=== PATIENT | female | born 1965 | race Caucasian/White ===

== ENCOUNTER 2018-10-10 13:22 | Observation (INO) | payer OTHER, SELFPAY ==
--- NOTE | 2018-10-10 13:49 | RAD ---
EXAM: Single view of the chest HISTORY: Intermittent chest pain and dizziness COMPARISON: None FINDINGS: Single view of the chest shows a normal sized cardiomediastinal silhouette. There is no blane dence of consolidation, mass, or pleural effusion. The bones are unremarkable. IMPRESSION: No evidence of acute cardiopulmonary disease
[2018-10-10 13:59] LABS: #Basophils 0.1 thou/uL (0.0-0.2); #Eosinphils 0.1 thou/uL (0.0-0.7); #Lymphocytes 2.1 thou/uL (1.20-3.40); #Monocytes 0.5 thou/uL (0.11-0.59); #Neutrophils 4.8 thou/uL (1.40-6.50); %Basophils 0.8 % (0.0-1.0); %Eosinophils 1.7 % (0.0-10.0); %Lymphocytes 27.2 % (21.0-51.0); %Monocytes 7.1 % (0.0-10.0); %Neutrophils 63.1 % (42.0-75.0); Hemoglobin 14.7 g/dL (12.0-16.0); Mean Corpuscular HGB CONC 34.2 g/dL (32.0-36.0); Mean Corpuscular Hemoglobin 33.1 pg (27.0-31.0); Mean Corpuscular Volume 96.8 fL (78.0-98.0); Platelet Count 207 thou/uL (130-400); RBC Distribution Width 11.6 % (11.5-14.5); Red Blood Cell (RBC) Count 4.45 mill/uL (4.20-5.40); White Blood Cell (WBC) Count 7.6 thou/uL (4.8-10.8)
[2018-10-10 14:24] LABS: ALT (SGPT) 18 U/L (8-55); AST (SGOT) 18 U/L (5-34); Albumin 4.6 g/dL (3.5-5.0); Alkaline Phosphatase 94 U/L (40-150); Anion Gap 12 mmol/L (10-20); BUN (Urea Nitrogen) 16 mg/dL (9.8-20.1); Bilirubin, Total 0.4 mg/dL (0.2-1.2); CK (CPK) 151 U/L (29-168); Calc. Creatinine Clearance 0 mL/min (70-130); Calcium 9.6 mg/dL (7.8-10.44); Carbon Dioxide 25 mmol/L (22-29); Chloride 105 mmol/L (98-107); Estimated GFR-MDRD 46; Globulin 2.5 g/dL (2.4-3.5); Glucose 101 mg/dL (70-105); Potassium 4.2 mmol/L (3.5-5.1); Protein, Total 7.1 g/dL (6.0-8.3); Sodium 138 mmol/L (136-145)
[2018-10-10] MEDS ORDERED: Aspirin 325 MG TAB ONE (15:43)
[2018-10-10] MEDS ORDERED: Acetaminophen 325 MG TAB PO PRN (17:01)
[2018-10-10] MEDS ORDERED: Senokot S 8.6-50 MG TAB PO PRN (17:01)
[2018-10-10] MEDS ORDERED: HYDROcodone/Acetaminophen 5/325 mg Tablet PO PRN (17:01)
[2018-10-10] MEDS ORDERED: hydrALAZINE 20 MG/ML VIAL SLOW IVP PRN (17:08)
[2018-10-10] MEDS ORDERED: Nitroglycerin 0.4 MG TAB (25 Tab Bottle) SL PRN (17:08)
[2018-10-10] MEDS ORDERED: cloNIDine 0.1 MG TAB PO PRN (17:08)
[2018-10-10 17:42] LABS: Troponin I Less than 0.010 ng/mL (< 0.028)
[2018-10-10 19:18] VITALS: BMI 27.2
[2018-10-10] MEDS ORDERED: Ondansetron PF 4 MG/2 ML Vial IVP PRN (19:23)
[2018-10-10] MEDS ORDERED: Ondansetron ODT 4 MG TAB SL PRN (19:23)
[2018-10-10 20:49] LABS: Troponin I Less than 0.010 ng/mL (< 0.028)
[2018-10-10] MEDS: Famotidine 20 MG TAB PO SCH (20:51)
--- NOTE | 2018-10-10 23:02 | HP ---
PRIMARY CARE PHYSICIAN: Ceferino Dhillon. CHIEF COMPLAINT: Chest pain. HISTORY OF PRESENT ILLNESS: The patient is a 52-year-old female who presents to the ER for chest pain. The patient reports on Wednesday that she felt like she was having a heart attack. She reports midsternal chest pain that radiated up to neck, to the bilateral extremities. She had numbness and tingling and she had some jaw pain. She describes it as she felt like someone was choking her. This happened at 12: 30 a.m. while she was in bed. The patient proceeded to take BC power, this went on for about 20 minutes and decided to lay in her bed with her head raised. She said that she had some associated diaphoresis, shortness of breath and palpitations. After taking the BC Powder and sitting up for about 5-10 minutes, she says that the chest pain and symptoms resolved. She says that the next 2 days she was in better health, but just had some decreased energy and then this morning she had dizziness when she went from sitting to standing up, so she came to the ER. PAST MEDICAL HISTORY: The patient denies any past medical history. PAST SURGICAL HISTORY: The patient had a hysterectomy secondary to endometriosis. The patient has had breast augmentation. FAMILY HISTORY: The patient reports that her father had a myocardial infarction at 53 and is . Mother had Alzheimer's and was at 77. She states all of her children are healthy. She has 1 brother with hypertension and her other 2 siblings are healthy. SOCIAL HISTORY: The patient reports that she drinks approximately 2 beers per day. She also reports that she has been a 1 pack per day smoker for the last 35 years. She does deny any illicit drug use. PSYCHIATRIC HISTORY: The patient denied any psych history. ALLERGIES: THE PATIENT DENIES ANY ALLERGIES TO ANY MEDICATIONS. HOME MEDICATION: The patient does not have any home medications. REVIEW OF SYSTEMS: The patient reports chest pain radiating to the neck, bilateral extremities and jaw. The patient reports some associated diaphoresis, shortness of breath and heart palpitations. All other systems reviewed and are negative unless otherwise stated in the HPI. PHYSICAL EXAMINATION: VITAL SIGNS: Temperature 98.1 oral, blood pressure 128/72, pulse 73, respirations 20, SpO2 99% on room air. CONSTITUTIONAL: Head is atraumatic and normocephalic. Eyes, pupils are equal, round, and reactive to light. Extraocular muscles intact. ENT: Tympanic membranes are normal. Oropharynx is open. Moist mucous membranes. NECK: No cervical adenopathy. Neck is nontender. Trachea is midline. RESPIRATORY: No respiratory distress. Breath sounds are equal and clear bilaterally. No wheezing, rhonchi, or rales. CARDIOVASCULAR: Regular rate and rhythm. Heart sounds normal. Carotids normal. ABDOMEN: Soft, nontender. Active bowel sounds. No peritoneal signs. No rigidity. No guarding. No rebound. BACK: Nontender. Normal inspection. EXTREMITIES: Upper extremities, inspection normal. Radial pulses normal. No cyanosis, no clubbing, no edema. Lower extremities, inspection normal. Palpable pedal pulses. No cyanosis. No clubbing. No edema. No tenderness. NEUROLOGIC: The patient is oriented to person, place, and time. No focal motor deficits. Speech is normal. SKIN: Warm, dry, and intact. No rashes. LABORATORY DATA: Sodium is 138, potassium is 4.2, carbon dioxide 25, BUN of 16, creatinine is 1.22, glucose 101, AST 18, ALT 18, alkaline phosphatase 94, CK is 151. Troponins negative x2. WBCs 7.6, hemoglobin 14.7, hematocrit 43.1, platelets 207. IMAGIN. Chest x-ray was negative. No acute cardiopulmonary processes. 2. EKG normal sinus rhythm at 93 beats per minute. Conduction normal, ST segments normal, T-waves normal, axis normal. Other findings septal infarct, age indeterminate, nonspecific EKG. ASSESSMENT AND PLAN: 1. Chest pain, rule out myocardial infarction. We will continue to trend cardiac troponins. We will give a full aspirin daily. We will check fasting lipid, a thyroid stimulating hormone, CBC and CMP in the morning. We will order a cardiac stress test with echo. 2. Dizziness. We will order orthostatics. 3. Tobacco Abuse We will provide counseling on smoking cessation. 4. Gastrointestinal and deep venous thrombosis prophylaxis. 5. Hospital course depending on clinical findings. Job ID: [id number] [facility]
[2018-10-11 06:59] LABS: #Basophils 0.1 thou/uL (0.0-0.2); #Eosinphils 0.2 thou/uL (0.0-0.7); #Lymphocytes 1.9 thou/uL (1.20-3.40); #Monocytes 0.5 thou/uL (0.11-0.59); #Neutrophils 3.3 thou/uL (1.40-6.50); %Basophils 1.1 % (0.0-1.0); %Eosinophils 3.2 % (0.0-10.0); %Neutrophils 55.7 % (42.0-75.0); Hemoglobin 14.4 g/dL (12.0-16.0); Mean Corpuscular HGB CONC 33.9 g/dL (32.0-36.0); Mean Corpuscular Volume 97.2 fL (78.0-98.0); Mean Platelet Volume 7.6 fL (7.4-10.4); Platelet Count 184 thou/uL (130-400); RBC Distribution Width 11.8 % (11.5-14.5); Red Blood Cell (RBC) Count 4.37 mill/uL (4.20-5.40); White Blood Cell (WBC) Count 5.9 thou/uL (4.8-10.8)
[2018-10-11 07:18] LABS: ALT (SGPT) 12 U/L (8-55); AST (SGOT) 10 U/L (5-34); Alkaline Phosphatase 79 U/L (40-150); Anion Gap 13 mmol/L (10-20); BUN (Urea Nitrogen) 15 mg/dL (9.8-20.1); Bilirubin, Total 0.5 mg/dL (0.2-1.2); Calc. Creatinine Clearance 93 mL/min (70-130); Calcium 9.2 mg/dL (7.8-10.44); Carbon Dioxide 22 mmol/L (22-29); Cardiac Risk 3.9 (Less than 4.5); Chloride 107 mmol/L (98-107); Cholesterol 212 mg/dl (< 200 Desired); Estimated GFR-MDRD 82; Globulin 2.4 g/dL (2.4-3.5); Glucose 85 mg/dL (70-105); HDL Cholesterol 55 mg/dL (>60 Neg Risk); LDL Cholesterol, Calculated 141 mg/dL; Potassium 4.2 mmol/L (3.5-5.1); Protein, Total 6.4 g/dL (6.0-8.3); Sodium 138 mmol/L (136-145); Triglycerides 80 mg/dL (Less than 150)
--- NOTE | 2018-10-11 11:14 | NM ---
Nuclear medicine Cardiac myocardial perfusion SPECT Ejection fraction study Wall motion cine: DATE:10/11/2018 12:00 AM INDICATION: Chest pain TECHNIQUE: Number of days:2 Rest Study: Technetium 99m-sestamibi (Cardiolite) dose:10.3 mCi Stress study: Technetium 99m-sestamibi (Cardiolite) dose:28.7 mCi FINDINGS: Cardiac (myocardial perfusion) SPECT There are no reversible myocardial perfusion defects. Ejection fraction study Left ventricular EF = 74% Wall motion cine There was normal wall motion and thickening. IMPRESSION: No evidence of reversible myocardial ischemia.
[2018-10-11] MEDS ORDERED: Sodium Chloride 0.9% 1,000 ML IV SCH (11:30)
[2018-10-11] MEDS: Famotidine 20 MG TAB PO SCH (11:56)
[2018-10-11 15:30] VITALS: BP 110/56; TEMP 98.4
--- NOTE | 2018-10-12 03:43 | DIS ---
DATE OF ADMISSION: 10/10/2018 DATE OF DISCHARGE: 10/11/2018 CHIEF COMPLAINT ON ADMISSION: Chest pain. DISCHARGE DIAGNOSES: 1. Chest pain, acute coronary syndrome ruled out, myocardial perfusion imaging negative for ischemia, resolved. 2. Tobacco abuse, current one pack per day usage. 3. Family history of coronary artery disease. 4. Hyperlipidemia, newly diagnosed. 5. Dizziness secondary to mild orthostatic hypotension, symptomatically resolved after IV fluid resuscitation. BRIEF HOSPITAL COURSE: The patient is a pleasant 52-year-old female with past medical history significant for family history of CAD along with tobacco abuse, who presented to the hospital with complaints of chest pain that actually began 2 days prior to admission. The patient reported that the chest pain radiated up into her neck and into her bilateral lower extremities, the patient did have some jaw pain. This happened at rest when the patient was in bed and awoke her from sleep. The patient took some BC Powder and eventually her chest pain resolved. She did not present to the hospital at that time. She felt generally fatigued over the weekend, but she did feel some decreased energy. The morning of her admission, she had some positional dizziness when she went from sitting to standing, so she presented to the ER for further workup and treatment. On arrival to the ER, workup included serial troponins, which were negative x3. Please note that the patient's chest pain had completely resolved. Her EKG showed no ischemic ST or T-wave changes. Given her multiple risk factors and current tobacco abuse, the patient did undergo a nuclear stress test, which was negative for reversible ischemia and showed normal ejection fraction. The patient was mildly orthostatic on arrival. Her orthostatics improved with gentle IV fluid resuscitation. At the time of my interview, the patient has no complaints. She has no chest pain, shortness of breath, or dizziness. She has ambulated the halls without issue. Lab work was notable for mixed hyperlipidemia with a total cholesterol level at 212 and LDL noted at 141. CONDITION ON DISCHARGE: Stable. DISCHARGE DISPOSITION: Home. DISCHARGE INSTRUCTIONS/FOLLOWUP: The patient has been counseled at length on the importance of tobacco cessation. She has also been counseled the importance of obtaining a primary care physician along with routine health maintenance. Regarding her mild hyperlipidemia, along with her other risk factors for coronary artery disease and sudden of myocardial infarction in her father at the age of 53, we will go ahead and start medical therapy for her hyperlipidemia with Lipitor 20 mg at bedtime. She will also start aspirin 81 mg daily. All questions have been answered to the patient's satisfaction. Care of this patient has been discussed with Dr. Lawrence, who agrees with discharge as outlined above. Job ID: [id number]
== END 2018-10-11 15:25 | disposition home or self-care (01) ==
LOC: ERS 13:22 → 2SW 18:51
PROVIDERS: ADMIT Internal Medicine; ATTEND Internal Medicine
DX: R07.2 Precordial pain (principal); I95.1 Orthostatic hypotension; R42 Dizziness and giddiness; E78.5 Hyperlipidemia, unspecified; F17.210 Nicotine dependence, cigarettes, uncomplicated; F32.9 Major depressive disorder, single episode, unspecified
CPT/HCPCS: 36415; 71045; 78452; 80053; 80061; 82550; 84443; 84484; 85025; 93005; 93017; A9500; G0378